=== PATIENT | female | born 1990 | race American Indian/Alaskan Native ===

== ENCOUNTER 2018-02-26 13:06 | Emergency (ER) | payer OTHER ==
[2018-02-26 13:59] LABS: Basophils % (Auto) 0.3 % (0.0-1.8); Eosinophils # (Auto) 0.3 K/mm3 (0.0-0.4); Hemoglobin 10.4 gm/dl (10.1-14.3); Lymphocytes # (Auto) 1.7 K/mm3 (1.2-5.4); Lymphocytes % (Auto) 18.1 % (13.4-35.0); Mean Corpuscular HGB Conc 35 % (30-34); Mean Corpuscular Volume 70 fl (79-97); Monocytes # (Auto) 0.6 K/mm3 (0.0-0.8); Monocytes % (Auto) 6.9 % (0.0-7.3); Platelet Count 236 K/mm3 (140-440); Red Blood Count 4.27 M/mm3 (3.65-5.03); Red Cell Distribution Width 14.4 % (13.2-15.2)
[2018-02-26 14:01] LABS: Mean Corpuscular Hemoglobin 24 pg (28-32)
[2018-02-26 14:16] LABS: Alanine Aminotransferase 15 units/L (7-56); Albumin 3.7 g/dL (3.9-5); BUN/Creatinine Ratio 14; Blood Urea Nitrogen 7 mg/dL (7-17); Calcium 9.1 mg/dL (8.4-10.2); Hemolysis Index 6
[2018-02-26] MEDS ORDERED: NACL 0.9% 1000 ML 1,000 ML IV ONE ×2 (14:47→17:52)
--- NOTE | 2018-02-26 14:48 | Emergency Department Report ---
ED General Adult HPI - General Chief complaint: Nausea/Vomiting/Diarrhea Stated complaint: DEHYDRATED/NAUSEA Time Seen by Provider: 02/26/18 14:23 Source: patient Mode of arrival: Ambulatory Limitations: No Limitations - History of Present Illness Initial comments: Patient is 27 years old female 2 para 1 at 13 weeks. Patient presented to the ER complaining of nausea and vomiting and she stated that she feel she is dehydrated. No active vomiting in the ER. Patient refused a diabetic and she stated that she just wanted the fluids. Patient denied any fever, dizziness lightheadedness, chest pain or shortness of breath. - Related Data Allergies Allergy/AdvReac Type Severity Reaction Status Date / Time No Known Allergies Allergy Unverified 02/26/18 13:11 ED Review of Systems ROS: Stated complaint: DEHYDRATED/NAUSEA Other details as noted in HPI ED Past Medical Hx - Past Medical History Hx Asthma: Yes Additional medical history: SICKLE CELL TRAIT - Surgical History Additional Surgical History: BREAST AUGMENTATION/ ADENOIDS - Social History Smoking Status: Never Smoker Substance Use Type: None ED Physical Exam - General Limitations: No Limitations ED Course Vital Signs 02/26/18 13:12 Temperature 98.5 F Pulse Rate 118 H Respiratory 20 Rate Blood Pressure 103/54 O2 Sat by Pulse 98 Oximetry ED Medical Decision Making - Lab Data Result diagrams: 02/26/18 13:40 02/26/18 13:40 Critical care attestation.: If time is entered above; I have spent that time in minutes in the direct care of this critically ill patient, excluding procedure time. ED Disposition Clinical Impression: Nausea/vomiting in Disposition: DC-01 TO HOME OR SELFCARE Is pt being admited?: No Condition: Stable Instructions: (ED), Acute Nausea and Vomiting (ED) Referrals: PRIMARY CARE, [Primary Care Provider] - 3-5 Days
[2018-02-26 17:34] LABS: Bilirubin,Urine NEG (Negative); Blood,Urine NEG (Negative); Color,Urine Yellow (Yellow); Mucus,Urine FEW /HPF; Protein,Urine <15 mg/dL mg/dL (Negative); Urobilinogen,Urine < 2.0 mg/dL (<2.0)
[2018-02-26 19:53] VITALS: BP 118/66
== END 2018-02-26 19:51 | disposition home or self-care (01) ==
LOC: ED 13:06
DX: O21.9 Vomiting of pregnancy, unspecified (principal); O99.511 Diseases of the respiratory system complicating pregnancy, first trimester; D57.1 Sickle-cell disease without crisis; O99.011 Anemia complicating pregnancy, first trimester; Z3A.13 13 weeks gestation of pregnancy; Z91.012 Allergy to eggs
CPT/HCPCS: 36415; 80053; 81001; 85025; 96360; 99283; J7030

== ENCOUNTER 2018-03-01 11:27 | Emergency (ER) | payer OTHER ==
[2018-03-01] MEDS ORDERED: PEPCID IV ONE (13:30)
[2018-03-01] MEDS ORDERED: NACL 0.9% 1000 ML 1,000 ML IV ONE ×2 (13:30→14:48)
[2018-03-01] MEDS ORDERED: ZOFRAN IV ONE (13:30)
--- NOTE | 2018-03-01 13:32 | Emergency Department Report ---
Blank Doc - Documentation Documentation: Patient is a 27-year-old black female who is approximately 13 weeks who is presenting with a week of nausea vomiting. Patient states she is unable to keep anything down. Patient states starting yesterday she is now has bright red blood in her vomit. Patient also states she has some right upper abdominal discomfort when she vomits. Patient feels dehydrated dry mouth. Patient states she's had decreased episodes of urinating at home. The patient will be moved to a treatment room for IV fluids and laboratory studies will be checked.
[2018-03-01 14:05] LABS: Basophils % (Auto) 0.2 % (0.0-1.8); Eosinophils # (Auto) 0.2 K/mm3 (0.0-0.4); Eosinophils % (Auto) 2.2 % (0.0-4.3); Hematocrit 30.1 % (30.3-42.9); Hemoglobin 9.8 gm/dl (10.1-14.3); Lymphocytes # (Auto) 1.6 K/mm3 (1.2-5.4); Lymphocytes % (Auto) 19.7 % (13.4-35.0); Mean Corpuscular HGB Conc 33 % (30-34); Mean Corpuscular Volume 71 fl (79-97); Monocytes # (Auto) 0.7 K/mm3 (0.0-0.8); Monocytes % (Auto) 7.8 % (0.0-7.3); Platelet Count 245 K/mm3 (140-440); Red Blood Count 4.22 M/mm3 (3.65-5.03); Red Cell Distribution Width 14.5 % (13.2-15.2)
[2018-03-01 14:07] LABS: Mean Corpuscular Hemoglobin 23 pg (28-32)
[2018-03-01 14:21] LABS: BUN/Creatinine Ratio 8; Blood Urea Nitrogen 4 mg/dL (7-17); Calcium 8.5 mg/dL (8.4-10.2); Hemolysis Index 11
--- NOTE | 2018-03-01 14:55 | Emergency Department Report ---
Vomiting/Diarrhea - HPI Chief Complaint: Nausea/Vomiting/Diarrhea Stated Complaint: /VOMIT BLOOD Time Seen by Provider: 03/01/18 13:23 Duration: 1 Day Severity: severe Nausea/Vomiting Severity: Moderate Diarrhea Severity: None Pain Location: Right Sided Pain Severity: Mild Symptoms: No Watery Diarrhea, No Bloody diarrhea, No Fever, No Able to Tolerate Fluids, No Recent Unusual Foods, No Recent Untreated Water, No Recent use of Antibiotics, No Family w/ Similar Symptoms, No Contacts w/ Similar Symptoms, No Rash, No Hematuria, No Recent URI Symptoms Other History: This is a 27-year-old -[place] female who is presenting with nausea and vomiting for 24 hours. Patient is 13 weeks gestation and states she was here 2 days ago with similar symptoms. LMP 12/01/2017, A0. Patient states she is unable to tolerate liquids or solids. Patient states starting yesterday she is now has bright red blood in her vomit. Patient states when she came today's ago she was treated for dehydration and given prescriptions for Zofran which she has not retrieved from pharmacy. Patient states she recently moved here from [place] and she was currently taken promethazine beer which was not helping her symptoms. She was also prescribed Reglan and multiple other medications which were not helpful. Patient states she last time voiding was around 10 PM last night which is what prompted her to come in for evaluation. She is also complaining of some right flank pain that is intermittent and sharp. ED Review of Systems ROS: Stated complaint: /VOMIT BLOOD Other details as noted in HPI Constitutional: denies: chills, fever Respiratory: denies: cough, shortness of breath, wheezing Cardiovascular: denies: chest pain, palpitations Gastrointestinal: nausea, vomiting. denies: abdominal pain, diarrhea, constipation, hematemesis, melena, hematochezia Genitourinary: denies: urgency, dysuria, frequency, discharge Musculoskeletal: back pain (right flank pain). denies: joint swelling, arthralgia Neurological: denies: headache, weakness, paresthesias Psychiatric: denies: anxiety, depression ED Past Medical Hx - Past Medical History Hx Asthma: Yes Additional medical history: SICKLE CELL TRAIT - Surgical History Additional Surgical History: BREAST AUGMENTATION/ ADENOIDS - Social History Smoking Status: Never Smoker Substance Use Type: None - Medications Home Medications: Home Medications Medication Instructions Recorded Confirmed Last Taken Type Ondansetron [Zofran Odt] 4 mg PO Q8HR PRN #20 tab.brennen 02/26/18 Unknown Rx Doxylamine Succinate/Vit B6 1 each PO QHS #15 tablet. 03/01/18 Unknown Rx [Brittany Mohr 10-10 mg Tablet] Vomiting Diarrhea Exam - Exam General: Vital signs noted. No distress. Alert and acting appropriately. HEENT: Yes Moist Mucous Membranes, No Pharyngeal Erythema, No Pharyngeal Exudates, No Rhinorrhea, No Conjuctival Injection, No Frontal Tenderness, No Maxillary Tenderness Neck: No Adenopathy, No Rigidity Lungs: Yes Clear Lung Sounds, Yes Good Air Exchange, No Wheezes, No Stridor, No Cough, No Nasal Flaring, No Retractions, No Use of Accessory Muscles Heart exam: Regular: Yes, Murmur: No, Tachycardia: No Abdomen: Tenderness: No, Peritoneal Signs: No, Distention: No, Hyperactive Bowel sounds: No Skin exam: Rash: No, Edema: No, Normal turgor: Yes Neurologic: Alert and oriented, no deficits. Musculoskeletal: Right CVA tenderness ED Course Vital Signs 03/01/18 11:37 Temperature 98.5 F Pulse Rate 100 H Respiratory 20 Rate Blood Pressure 117/48 O2 Sat by Pulse 100 Oximetry ED Medical Decision Making - Lab Data Result diagrams: 03/01/18 13:50 03/01/18 13:50 Lab Results 03/01/18 03/01/18 Range/Units 13:50 13:50 WBC 8.3 (4.5-11.0) K/mm3 RBC 4.22 (3.65-5.03) M/mm3 Hgb 9.8 L (10.1-14.3) gm/dl Hct 30.1 L (30.3-42.9) % MCV 71 L (79-97) fl MCH 23 L (28-32) pg MCHC 33 (30-34) % RDW 14.5 (13.2-15.2) % Plt Count 245 (140-440) K/mm3 Lymph % (Auto) 19.7 (13.4-35.0) % [place] % (Auto) 7.8 H (0.0-7.3) % Eos % (Auto) 2.2 (0.0-4.3) % Baso % (Auto) 0.2 (0.0-1.8) % Lymph # 1.6 (1.2-5.4) K/mm3 [place] # 0.7 (0.0-0.8) K/mm3 Eos # 0.2 (0.0-0.4) K/mm3 Baso # 0.0 (0.0-0.1) K/mm3 Seg Neutrophils % 70.1 H (40.0-70.0) % Seg Neutrophils # 5.8 (1.8-7.7) K/mm3 Sodium 136 L (137-145) mmol/L Potassium 3.7 (3.6-5.0) mmol/L Chloride 101.7 (98-107) mmol/L Carbon Dioxide 22 (22-30) mmol/L Anion Gap 16 mmol/L BUN 4 L (7-17) mg/dL Creatinine 0.5 L (0.7-1.2) mg/dL Estimated GFR > 60 ml/min BUN/Creatinine Ratio 8 % Glucose 71 (65-100) mg/dL Calcium 8.5 (8.4-10.2) mg/dL - Medical Decision Making This is a 27-year-old female who presents with nausea vomiting during for 24 hours. Patient was examined by me and Dr. Calero. Vitals are normal and patient is in no acute distress. Patient given Pepcid 20 mg IV, Zofran 4 mg IV , normal saline 1L IV x 2. Obtained a CBC and BMP. Labs are unremarkable. Reevaluation, patient is feeling better and voiding. Start diclegis for hyperemesis. Plan discussed with patient to discharge home and treat outpatient. She agrees with ER plan. Patient discharged home in stable condition. Follow up with [facility] in 2-3 days. Critical care attestation.: If time is entered above; I have spent that time in minutes in the direct care of this critically ill patient, excluding procedure time. ED Disposition Clinical Impression: Nausea/vomiting in , Hyperemesis gravidarum Disposition: - TO HOME OR SELFCARE Is pt being admited?: No Does the pt Need Aspirin: No Condition: Stable Instructions: Hyperemesis Gravidarum (ED) Additional Instructions: Follow up with [facility] in 24 to 48 hours. Take diclegis 1 tablet by mouth at night time for nausea. Medication may cause drowsiness. Prescriptions: Doxylamine Succinate/Vit B6 [Brittany Mohr 10-10 mg Tablet] 1 each PO QHS #15 tablet. Referrals: [facility] [Provider Group] - 3-5 Days [facility] [Provider Group] - 3-5 Days ARMINDA CHONG [Staff Physician] - 3-5 Days Time of Disposition: 15:52 Print Language: GEORGIAN
[2018-03-01 17:03] VITALS: BP 103/49
== END 2018-03-01 17:02 | disposition home or self-care (01) ==
LOC: ED 11:27
DX: O21.0 Mild hyperemesis gravidarum (principal); O99.511 Diseases of the respiratory system complicating pregnancy, first trimester; J45.909 Unspecified asthma, uncomplicated; Z3A.12 12 weeks gestation of pregnancy
CPT/HCPCS: 36415; 80048; 85025; 96361; 96374; 96375; 99283; J2405; J7030